=== PATIENT | male | born 1985 | race Caucasian/White ===

== ENCOUNTER 2021-01-27 23:23 | Emergency (ER) | payer OTHER ==
[~2021-01-27] VITALS: Ht 172.7 cm; Wt 86.2 kg
[2021-01-28 00:34] VITALS: BP 149/100
[2021-01-28] MEDS ORDERED: IBUPROFEN 400 MG TABLET ONE (01:11)
--- NOTE | 2021-01-28 01:18 | NUR ---
Patient discharged to home in stable condition. Written and verbal after care instructions given. Patient verbalizes understanding of instruction.
[2021-01-28] MEDS ORDERED: IBUPROFEN 400 MG TABLET PO ONE (01:30)
== END 2021-01-28 01:31 | disposition home or self-care (01) ==
LOC: ER 23:27
DX: R52 Pain, unspecified (principal); Z59.00 Homelessness unspecified; I10 Essential (primary) hypertension

== ENCOUNTER 2021-06-05 04:58 | Emergency (ER) | payer OTHER ==
[~2021-06-05] VITALS: Ht 185.4 cm; Wt 131.5 kg
--- NOTE | 2021-06-05 05:39 | NUR ---
PT IVA WAS FOUND TRESPASSING, C/O PT NOT KNOWING WHERE HE IS, "PEOPLE ARE ARE CHASING HIM." PT TAKEN TO ER BED 13, AMBULATES STEADY. PATIENT CONNECTED TO MONITORS.
[2021-06-05] MEDS ORDERED: OLANZAPINE 10 MG VIAL IM ONE ×2 (05:58→06:00)
[2021-06-05] MEDS ORDERED: LORAZEPAM INJ 2 MG/ML VIAL ONE (05:58)
[2021-06-05] MEDS ORDERED: LORAZEPAM INJ 2 MG/ML VIAL IM ONE (06:00)
--- NOTE | 2021-06-05 06:03 | NUR ---
PATIENT WALKING AROUND UNIT TRYING TO LEAVE. YELLING AT STAFF. ER MADE AWARE. AWAITING ORDERS.
--- NOTE | 2021-06-05 06:20 | NUR ---
LAB AT BEDSIDE, BLOOD COLLECTED
[2021-06-05 06:28] LABS: BASOPHILS % (AUTO) 0.6 % (0.0-2.0); EOSINOPHILS % (AUTO) 1.6 % (0.0-6.0); HEMATOCRIT 36 % (39-51); HEMOGLOBIN 12.4 g/dL (13.5-17.5); LYMPHOCYTES # (AUTO) 1.1 K/uL (0.8-4.8); LYMPHOCYTES % (AUTO) 21.3 % (20.0-44.0); MEAN CORPUSCULAR HGB CONC 35 g/dl (31.0-36.0); MEAN CORPUSCULAR VOLUME 94 fL (80-96); MONOCYTES # (AUTO) 0.5 K/uL (0.1-1.30); MONOCYTES % (AUTO) 10.1 % (2.0-12.0); NEUTROPHILS # (AUTO) 3.4 K/uL (1.8-8.9); NEUTROPHILS % (AUTO) 66.4 % (43.0-81.0); PLATELET COUNT (AUTO) 120 K/uL (150-450); RED BLOOD CELL COUNT(AUTO) 3.83 MIL/uL (4.5-6.0); WHITE BLOOD COUNT (AUTO) 5.1 K/uL (4.3-11.0)
[2021-06-05] MEDS ORDERED: LIDOCAINE 2% JEL UROJET 10 ML MM ONE (06:52)
--- NOTE | 2021-06-05 07:03 | NUR ---
URINE COLLECTED AND SENT TO LAB
--- NOTE | 2021-06-05 07:11 | NUR ---
Klaus moreland in [facility] - 06/05/21 at 0712 by VIOLETTA REPORT GIVEN TO HARRY PENALOZA
[2021-06-05 07:39] LABS: BILIRUBIN,URINE NEGATIVE (NEGATIVE); COLOR,URINE YELLOW (YELLOW); LEUKOCYTE ESTERASE ,URINE NEGATIVE (NEGATIVE); NITRITE, URINE NEGATIVE (NEGATIVE); PROTEIN,URINE NEGATIVE (NEGATIVE); UGLUCOSE NEGATIVE (NEGATIVE); UROBILINOGEN,URINE 0.2 EU/dL (0.2)
[2021-06-05 08:23] LABS: CALCIUM, SERUM 9.4 mg/dL (8.5-10.1); CARBON DIOXIDE 23 mmol/L (21-32); CHLORIDE 93 mmol/L (98-107); CREATININE 1.1 mg/dL (0.6-1.3); GLUCOSE 106 mg/dL (74-106); POTASSIUM 3.5 mmol/L (3.5-5.1); SODIUM SERUM 128 mmol/L (136-145); UREA NITROGEN, BLOOD 11 mg/dL (7-18)
[2021-06-05 08:36] LABS: ALANINE AMINOTRANSFERASE 102 U/L (12-78); ALCOHOL, BLOOD 103 mg/dL (0-0); ASPARTATE AMINOTRANSFERASE 182 U/L (15-37); BILIRUBIN,DIRECT 0.3 mg/dL (0.0-0.2); BILIRUBIN,TOTAL 0.9 mg/dL (0.2-1.0); TOTAL PROTEIN, SERUM 7.8 g/dL (6.4-8.2)
[2021-06-05 09:14] LABS: ACETAMINOPHEN 0 ug/ml (10-30)
[2021-06-05 09:38] LABS: ALKALINE PHOSPHATASE 80 U/L (46-116)
--- NOTE | 2021-06-05 10:34 | NUR ---
Klaus moreland in ED - 06/05/21 at 1053 by [id number] FAXED CLINICALS TO [facility] [FAX:[phone]], [facility] [FAX:[phone]], [facility] [FAX: [phone]].
--- NOTE | 2021-06-05 10:48 | NUR ---
MARTI GAMEZ CALLED FOR EVAL, ETA 2 HRS
--- NOTE | 2021-06-05 12:50 | NUR ---
ASRT [facility] SW AT BEDSIDE FOR EVAL.
--- NOTE | 2021-06-05 13:59 | NUR ---
Patient discharged to home in stable condition. Written and verbal after care instructions given. Patient verbalizes understanding of instruction.
[2021-06-05 14:39] VITALS: BP 128/78
== END 2021-06-05 14:40 | disposition home or self-care (01) ==
LOC: ER 05:00
DX: F29 Unspecified psychosis not due to a substance or known physiological condition (principal); Z59.02 Unsheltered homelessness; Z78.1 Physical restraint status; I10 Essential (primary) hypertension; Z20.822 Contact with and (suspected) exposure to COVID-19
CPT/HCPCS: 36415; 80048; 80076; 80143; 80307; 80320; 81003; 85025; 87426; 96372; 99285; C9803; J2060; J3490; G0480

== ENCOUNTER 2021-06-06 07:44 | Emergency (ER) | payer OTHER ==
[~2021-06-06] VITALS: Ht 177.8 cm; Wt 83.9 kg
--- NOTE | 2021-06-06 08:06 | NUR ---
ROGER LINO, FOUND LAYING ON SIDEWALK ALOC WITH BOTTLE OF ALCOHOL
--- NOTE | 2021-06-06 08:23 | NUR ---
LINE STARTED ON L AC G18, BLOOD DRAWN FROM LINE AND SENT TO LAB
[2021-06-06 09:11] LABS: BASOPHILS # (AUTO) 0.1 K/uL (0.0-0.2); BASOPHILS % (AUTO) 0.9 % (0.0-2.0); EOSINOPHILS % (AUTO) 0.3 % (0.0-6.0); HEMATOCRIT 39 % (39-51); HEMOGLOBIN 12.9 g/dL (13.5-17.5); LYMPHOCYTES # (AUTO) 1.2 K/uL (0.8-4.8); LYMPHOCYTES % (AUTO) 13.6 % (20.0-44.0); MEAN CORPUSCULAR HGB CONC 33 g/dl (31.0-36.0); MEAN CORPUSCULAR VOLUME 93 fL (80-96); MONOCYTES # (AUTO) 0.7 K/uL (0.1-1.30); MONOCYTES % (AUTO) 7.5 % (2.0-12.0); NEUTROPHILS # (AUTO) 6.9 K/uL (1.8-8.9); NEUTROPHILS % (AUTO) 77.7 % (43.0-81.0); PLATELET COUNT (AUTO) 284 K/uL (150-450); RED BLOOD CELL COUNT(AUTO) 4.21 MIL/uL (4.5-6.0); WHITE BLOOD COUNT (AUTO) 8.9 K/uL (4.3-11.0)
[2021-06-06] MEDS ORDERED: IV NS 0.9% 1,000 ML BAG IV ONE (09:30)
[2021-06-06 09:34] LABS: ALBUMIN 3.7 g/dL (3.4-5.0); BILIRUBIN,DIRECT 0.1 mg/dL (0.0-0.2); BILIRUBIN,TOTAL 0.2 mg/dL (0.2-1.0); CALCIUM, SERUM 8.1 mg/dL (8.5-10.1); CREATININE 0.8 mg/dL (0.6-1.3); POTASSIUM 3.2 mmol/L (3.5-5.1); TOTAL PROTEIN, SERUM 7.7 g/dL (6.4-8.2)
[2021-06-06] MEDS ORDERED: IV D5/0.45 NACL 1,000 ML IV ONE (10:30)
[2021-06-06] MEDS ORDERED: Thiamine 100 MG in IV D5W 50 ML IV SCH (10:30)
[2021-06-06 12:20] LABS: BILIRUBIN,URINE NEGATIVE (NEGATIVE); COLOR,URINE YELLOW (YELLOW); LEUKOCYTE ESTERASE ,URINE NEGATIVE (NEGATIVE); NITRITE, URINE NEGATIVE (NEGATIVE); PROTEIN,URINE NEGATIVE (NEGATIVE); UGLUCOSE NEGATIVE (NEGATIVE); UROBILINOGEN,URINE 0.2 EU/dL (0.2)
[2021-06-06] MEDS ORDERED: POTASSIUM CHLORIDE 20 MEQ TAB.PRT.SR PO ONE ×2 (14:00→14:31)
--- NOTE | 2021-06-06 15:28 | NUR ---
Patient discharged to home in stable condition. Written and verbal after care instructions given. Patient verbalizes understanding of instruction.IV removed. Catheter intact and site benign. Pressure and 4x4 applied to site. No bleeding noted.
[2021-06-06 15:30] VITALS: BP 137/88
--- NOTE | 2021-06-09 11:55 | NUR ---
ADDENDUM. PT WAS STARTED ON D5/0.45 NACL 1,000 ML AT 150ML/HR. PT WAS DISHARGED AT 1528 06/06/21 AND D5/0.45 NACL 1,000 ML WAS DISCONTINUE AT 1528. PT TOLERATED D5/0.45 NACL 1,000 ML WELL.
--- NOTE | 2021-06-09 11:56 | NUR ---
ADDENDUM THIAMINE 100MG IN D5W 50 ML STARTED AT 1048 ON 06/06/21 AND COMPLETES AT 1118. PT TOLERATED WELL.
== END 2021-06-06 15:31 | disposition home or self-care (01) ==
LOC: ER 07:47
DX: F10.129 Alcohol abuse with intoxication, unspecified (principal); I10 Essential (primary) hypertension; Z59.00 Homelessness unspecified; Y90.8 Blood alcohol level of 240 mg/100 ml or more
CPT/HCPCS: 36415; 70450; 80048; 80076; 80143; 80307; 80320; 81003; 85025; 96361; 96365; 99285; J3411; J3490; J7030; J7060; G0480